=== PATIENT | male | born 1980 | race African-American/Black ===

== ENCOUNTER 2022-09-28 10:00 | Emergency (ER) | payer OTHER, SELFPAY ==
--- NOTE | ~2022-09-28 | XR_ITS ---
Clinical Indication: Chest pain PA and lateral views of the chest: Comparison: None Findings: The lungs are clear, without evidence of focal consolidation or pleural effusion. Cardiome diastinal silhouette is within normal limits. Bones and soft tissues are unremarkable. Impression: Normal chest. Reviewed, dictated and finalized at location . Impression: Normal chest.
[2022-09-28 10:14] VITALS: BP 140/96; PULSE 88; RESP 16; TEMP 36.6; O2SAT 100
--- NOTE | 2022-09-28 10:19 | ED.GENADULT ---
HPI - General Adult General Chief complaint: Upper Respiratory Infection Stated complaint: Burning in chest like a chest cold Time Seen by Provider: 09/28/22 10:19 Source: patient, RN notes reviewed and old records reviewed Mode of arrival: ambulatory Limitations: no limitations History of Present Illness HPI narrative: 42 year old male presents to express care with complaints of feeling like he has chest cold with some burning like sensation in chest. Patient reports that he did tele doc visit on the and was given inhaler and also told to take Mucinex.He reports that he used Symbicort inhaler once then he worked out and developed a rash so has not used inhaler since and only took Mucinex once. Patient reports that he does have history of seasonal allergies and has not routinely been using his Flonase and Zyrtec. Patient denies any acute cough states that he has hacked up some mucous which is clear, denies any fevers, chills or sweats or any other symptoms. Patient reports that he wishes chest x-ray today to make sure his lungs are clear. He reports that he has had acid reflux in past and this feels different. MD complaint: burning feeling in chest like chest cold stated Onset (ago): day(s) (10) Radiation: non-radiation Treatments prior to arrival: other (used inhaler and took Mucinex) Related Data Home Medications Medication Instructions Recorded Confirmed nifedipine 60 mg tablet,extended 60 mg PO DAILY 09/28/22 09/28/22 release olmesartan 40 mg tablet 40 mg PO HS 09/28/22 09/28/22 Allergies Allergy/AdvReac Type Severity Reaction Status Date / Time No Known Allergies Allergy Verified 09/28/22 10:13 Review of Systems Review of Systems: CONSTITUTIONAL: Denies fever, chills, or sweats. EYES: Denies visual changes, redness, or discharge. ENT: Denies rhinorrhea, sinus congestion, sore throat, or otalgia. CARDIOVASCULAR: Denies chest pain, palpitations, or edema, reports burning like sensation in chest like chest cold. RESPIRATORY: Denies cough or dyspnea. GASTROINTESTINAL: Denies abdominal pain, nausea, vomiting, or diarrhea. GENITOURINARY: Denies dysuria or hematuria. SKIN: Denies rash or itching. MUSCULOSKELETAL: Denies back pain, joint pain, or myalgia. NEUROLOGIC: Denies headache, numbness, or weakness. PSYCHIATRIC: Denies anxiety or depression. All systems reviewed & are unremarkable except as noted in HPI and below PMFSH Past Medical History Medical History (Updated 09/29/22 @ 09:34 by Alberta Barnett NP) Hypertension Social History Social History (Updated 09/28/22 @ 10:52 by Alberta Barnett NP) Smoking status: Never smoker Gender identity (if verbalized by the patient): Male Comments At time of signature, agree with nursing past medical, surgical, social and family history. There is no relevant family history pertinent to the presenting complaint Exam Narrative: GENERAL: Well-appearing, well-nourished, and in no acute distress. HEAD: Normocephalic, atraumatic. EYES: PERRLA and EOMI. ENT: Nares clear, scant clear rhinorrhea no epistaxis. Mucous membranes moist.TM's normal, throat pink with no swelling redness or tonsil enlargement, some post nasal drainage noted NECK: Supple. no lymphadenopathy CHEST: Clear to auscultation. No respiratory distress.no cough noted SAO2 100% on room air HEART: Regular rate and rhythm. No murmur heard. Normal peripheral pulses. ABDOMEN: Soft, nontender, nondistended, normal active bowel sounds. EXTREMITIES: Normal range of motion. No edema. SKIN: Warm, dry, no rash. NEURO: No focal deficits. Alert and oriented x3. Course Course Emergency Course: Patient is aware of diagnosis, understands and agrees to treatment plan.? Anticipatory guidance given.? Patient agrees to follow-up as directed and is aware of reasons to seek care at the emergency department. Portions of this record may have been created with voice recognition software Level of Care: Expr
== END 2022-09-28 11:34 | disposition home or self-care (01) ==
PROVIDERS: Emergency Provider Registered Nurse
DX: J06.9 Acute upper respiratory infection, unspecified (principal); I10 Essential (primary) hypertension
CPT/HCPCS: 71046; 99213; G0463